=== PATIENT | male | born 1935 | race Caucasian/White ===

== ENCOUNTER 2020-06-03 16:45 | Emergency (ER) | payer OTHER ==
[~2020-06-03] VITALS: Ht 167.6 cm; Wt 59.6 kg
[2020-06-03 16:48] VITALS: BP 133/56
--- NOTE | 2020-06-03 16:59 | NUR ---
DAUGHTER REQUESTING TO BE UPDATED ABOUT FATHER'S STATUS CONTACT #: [phone] Lisa SANTIAGO
--- NOTE | 2020-06-03 17:03 | NUR ---
84 y/o male c/o right groin pain 7/10 pressure-like worse with exertion X1day. Pt states he noticed this [id number] ago, pain was intermittent, and has became constant for 1 day now. Right groin swelling noted, skin is intact, tender to touch. No PMH RX: Lipitor to control HLD NKA
[2020-06-03] MEDS ORDERED: KETOROLAC 15 MG/ML VIAL IM ONE (17:25)
[2020-06-03 18:03] VITALS: BP 133/56
--- NOTE | 2020-06-03 18:04 | NUR ---
Patient discharged with v/s stable. Written and verbal after care instructions given and explained. Patient alert, oriented and verbalized understanding of instructions. Ambulatory with steady gait. All questions addressed prior to discharge. ID band removed. Patient advised to follow up with PMD. Rx of Naprosyn 500mg given. Patient educated on indication of medication including possible reaction and side effects. Opportunity to ask questions provided and answered.
== END 2020-06-03 18:04 | disposition home or self-care (01) ==
LOC: MED 16:45
DX: R10.2 Pelvic and perineal pain (principal); K40.90 Unilateral inguinal hernia, without obstruction or gangrene, not specified as recurrent
CPT/HCPCS: 81002; 96372; 99283; J1885

== ENCOUNTER 2020-07-11 10:02 | Emergency (ER) | payer OTHER, SELFPAY ==
[~2020-07-11] VITALS: Ht 165.1 cm; Wt 63.5 kg
[2020-07-11 10:20] VITALS: BP 141/91
--- NOTE | 2020-07-11 12:11 | NUR ---
COVID SWAB COLLECTED AND SENT TO THE LAB.
[2020-07-11 12:32] VITALS: BP 141/91
--- NOTE | 2020-07-11 12:32 | NUR ---
PT BIB DAUGHTER C/O BODY ACHES, GENERALIZED WEAKNESS, AND CHILLS FOR 1 WEEK. DENIES FEVER, COUGH, OR N/V/D. PT EXPOSED TO HIS SON WHO WAS TESTED POSITIVE COVID RECENTLY. NO ARMANDO LOWER LEG EDEMA NOTICED. PMH: HLD, CHF
--- NOTE | 2020-07-11 12:33 | NUR ---
Patient discharged with v/s stable. Written and verbal after care instructions given and explained. Patient alert, oriented and verbalized understanding of instructions. Ambulatory with by caregiver. All questions addressed prior to discharge. ID band removed. Patient advised to follow up with PMD. Rx of azithromycin 250mg 2tabs daily PO, augmentin 875mg tab BID with meals, and albuterol 90mcg inhalation 1-2puffs QID PRN given. Patient educated on indication of medication including possible reaction and side effects. Opportunity to ask questions provided and answered.
== END 2020-07-11 12:33 | disposition home or self-care (01) ==
LOC: MED 10:02
DX: M79.10 Myalgia, unspecified site (principal); Z20.828 Contact with and (suspected) exposure to other viral communicable diseases; R53.1 Weakness; R68.83 Chills (without fever); E78.5 Hyperlipidemia, unspecified; I50.9 Heart failure, unspecified
CPT/HCPCS: 71045; 99284; U0003

== ENCOUNTER 2023-04-20 10:57 | Emergency (ER) | payer OTHER ==
[~2023-04-20] VITALS: Ht 172.7 cm; Wt 63.0 kg
[2023-04-20 11:04] VITALS: BP 142/58; PULSE 74; RESP 20; TEMP 98.5; O2SAT 98
[2023-04-20] MEDS ORDERED: ALBUTEROL 0.083% 2.5 MG/3 ML NEBU INH ONE (11:15)
[2023-04-20 11:32] VITALS: PULSE 66; RESP 18; O2SAT 96
[2023-04-20 12:34] LABS: BASOPHILS % (AUTO) 0.8 % (0.0-2.0); EOSINOPHILS # (AUTO) 0.1 K/uL (0-0.4); EOSINOPHILS % (AUTO) 2.4 % (0.0-4.0); HEMATOCRIT 35.2 % (36-52); HEMOGLOBIN 11.6 g/dL (12.0-18.0); LYMPHOCYTES # (AUTO) 2.5 K/uL (2.0-11.5); LYMPHOCYTES % (AUTO) 43.5 % (20.5-51.1); MEAN CORPUSCULAR HEMOGLOBIN 24 pg (27-31); MEAN CORPUSCULAR HGB CONC 33 g/dL (33-37); MEAN CORPUSCULAR VOLUME 74.1 fL (80-94); MONOCYTES # (AUTO) 0.7 K/uL (0.8-1.0); MONOCYTES % (AUTO) 11.8 % (1.7-9.3); NEUTROPHILS # (AUTO) 2.3 K/uL (1.8-7.7); NEUTROPHILS % (AUTO) 41.5 % (42.2-75.2); PLATELET COUNT (AUTO) 199 K/uL (140-450); RED BLOOD CELL COUNT(AUTO) 4.75 MIL/uL (4.20-6.10); RED CELL DISTRIBUTION WIDTH 18.4 % (11.6-13.7); WHITE BLOOD COUNT (AUTO) 5.7 K/uL (4.8-10.8)
[2023-04-20 13:04] LABS: ANION GAP 7.1 (8-16); CALCIUM 8.7 mg/dL (8.5-10.1); CARBON DIOXIDE 30.6 mmol/L (21-32); CHLORIDE 104 mmol/L (98-107); GLUCOSE 133 mg/dL (74-106); POTASSIUM 3.7 mmol/L (3.5-5.1); SODIUM SERUM 138 mmol/L (136-145); UREA NITROGEN, BLOOD 9 mg/dL (7-18)
[2023-04-20 13:12] LABS: FLU A ANTIGEN negative (NEGATIVE); FLU B ANTIGEN NEGATIVE (NEGATIVE)
[2023-04-20] MEDS ORDERED: NIRM1TAB PO (13:19)
[2023-04-20 14:00] VITALS: O2SAT 96
== END 2023-04-20 14:00 | disposition home or self-care (01) ==
LOC: MED 10:57
DX: U07.1 COVID-19 (principal); R06.2 Wheezing; I50.9 Heart failure, unspecified; Z79.899 Other long term (current) drug therapy
CPT/HCPCS: 36415; 71045; 80048; 83880; 84484; 85025; 87426; 87804; 93005; 94640; 99285; J7613